=== PATIENT | male | born 1960 | race Caucasian/White ===

== ENCOUNTER 2021-11-03 13:07 | Emergency (ER) | payer OTHER ==
[~2021-11-03] VITALS: Ht 170.2 cm; Wt 72.7 kg
[2021-11-03 13:28] VITALS: TEMP 98
[2021-11-03 13:56] VITALS: BP 142/104; PULSE 66
== END 2021-11-03 14:00 | disposition home or self-care (01) ==
LOC: COL.ER 13:07
DX: M12.812 Other specific arthropathies, not elsewhere classified, left shoulder (principal); Z87.891 Personal history of nicotine dependence; X50.0XXA Overexertion from strenuous movement or load, initial encounter